=== PATIENT | female | born 1960 | race Caucasian/White ===

== ENCOUNTER 2016-09-09 21:39 | Emergency (ER) | payer OTHER ==
--- NOTE | ~2016-09-09 | CR63 ---
[facility] A Service of [facility] & [facility] RADIOLOGY TEXT RESULTS PATIENT: ALEKSANDR CHANDLER LOCATION: [facility] : [birth year] UNIT #: [id number] AGE: [address]: Jacinto Teixeira MD SEX: F ORDER DR: [id number] [facility] [address] [place], [place] [address] [id number] E MR#: [id number] Acc #: [id number] NAME: ALEKSANDR CHANDLER : 1960 SEX: F STUDY DATE/TIME: 09/09/2016 22:50 UNIT: [facility] ROOM: STUDY DESCRIPTION: CR Chest 2 View Attending Physician: Jacinto Teixeira M.D. Ordering Physician: Jacinto Teixeira M.D. Primary Care Physician: No Primary Care Physician MEDICAL IMAGING REPORT This report is preliminary unless electronic signature is present EXAM PA and lateral chest DATE 09/09/2016 HISTORY 55-year-old female shortness breath today. Smoking history. COMPARISON AP portable chest 04/04/2015 FINDINGS No acute airspace disease. Heart size within normal limits. No pleural effusion or pneumothorax is identified. IMPRESSION 1. No acute cardiopulmonary findings. Dictated by... April Gaffney M.D. THIS IS AN ELECTRONICALLY VERIFIED REPORT April Gaffney M.D. at 09/10/2016 6:02 AM BRENT/debora TD: 09/10/2016 02:02 JOB #: [id number] MEDICAL IMAGING REPORT Page 1 of 1 COPY
[~2016-09-09 21:39] MED LIST: ALBUTEROL/ATROVENT; ALBUTEROL17 GM INH; AMOXICILLIN PO; AUGMENTIN PO; BENZONATATE PO; CIPRO PO; DUONEB 2.5-0.5 M3 ML NEB; E-MYCIN250 MG PO; LIPITOR40 MG PO; LISINOPRIL PO; NEXIUM PO; NORCO 5/325 TAB1 TAB PO; PHENERGAN PO; PREDNISONE PO; PRINIVIL20 M1 PO; PROPRANOLOL HCL10 M1 PO; ROBITUSSIN A-C S5 ML PO; SERTRALINE HCL50 M1 PO; SYMBICORT80 INH; VICODIN PO; ZITHROMAX PO; ZITHROMAX1 G/PKT PO
== END 2016-09-10 00:20 | disposition home or self-care (01) ==
LOC: CED 21:39
DX: J44.1 Chronic obstructive pulmonary disease with (acute) exacerbation (principal); J20.9 Acute bronchitis, unspecified; J44.0 Chronic obstructive pulmonary disease with (acute) lower respiratory infection; F17.200 Nicotine dependence, unspecified, uncomplicated; Z79.899 Other long term (current) drug therapy
CPT/HCPCS: 71020; 94640; 99284

== ENCOUNTER 2016-09-29 19:52 | Emergency (ER) | payer OTHER ==
--- NOTE | ~2016-09-29 | CR20 ---
[facility] A Service of [place] & [facility] RADIOLOGY TEXT RESULTS PATIENT: ALEKSANDR CHANDLER LOCATION: [facility] : 64 UNIT #: [id number] AGE: [address]: RK LATHAM APRN SEX: F ORDER DR: [id number] [facility] [address] [place], [place] [address] [id number] E MR#: [id number] Acc #: [id number] NAME: ALEKSANDR CHANDLER : 1960 SEX: F STUDY DATE/TIME: 09/29/2016 20:28 UNIT: [facility] ROOM: STUDY DESCRIPTION: CR Ankle Min 3 Views Lt Attending Physician: Rk Latham Aprn Ordering Physician: Rk Latham Aprn Primary Care Physician: No Primary Care Physician MEDICAL IMAGING REPORT This report is preliminary unless electronic signature is present EXAM Left ankle series. DATE OF EXAM 09/29/2016 HISTORY Trauma. Twisted ankle in yard, anterior and lateral ankle/foot pain and swelling. FINDINGS AP, lateral and oblique radiographs of the left ankle are presented. No traumatic fracture or malalignment. Small plantar calcaneal spur. Soft tissue swelling anterior and medial aspect to the ankle, but no soft tissue defect, subcutaneous air or radiodense foreign body is seen. Dictated by... Javier Vann M.D. THIS IS AN ELECTRONICALLY VERIFIED REPORT Javier Vann M.D. at 09/30/2016 7:52 PM LUCILLE/priyank TD: 09/29/2016 22:08 JOB #: [id number] MEDICAL IMAGING REPORT Page 1 of 1 COPY
--- NOTE | ~2016-09-29 | CR126 ---
[facility] A Service of [facility] RADIOLOGY TEXT RESULTS PATIENT: ALEKSANDR CHANDLER LOCATION: [facility] : 64 UNIT #: [id number] AGE: [address]: RK LATHAM APRN SEX: F ORDER DR: [id number] [facility] [address] [place], [place] [address] [id number] E MR#: [id number] Acc #: [id number] NAME: ALEKSANDR CHANDLER : 1960 SEX: F STUDY DATE/TIME: 09/29/2016 20:30 UNIT: [facility] ROOM: STUDY DESCRIPTION: CR Foot Complete Min 3 View Lt Attending Physician: Rk Latham Aprn Ordering Physician: Rk Latham Aprn Primary Care Physician: No Primary Care Physician MEDICAL IMAGING REPORT This report is preliminary unless electronic signature is present EXAM Left foot 3 views HISTORY Foot and ankle pain, twisted ankle in yard today. FINDINGS 3 views of the left foot demonstrates diffuse soft tissue swelling about the foot and ankle. This may in part be related to body habitus. No definite fracture or dislocation. Normal alignment. Subtalar joint and midfoot alignment appears maintained. IMPRESSION Diffuse soft tissue swelling about the foot and ankle No discrete osseous abnormality identified. Please note if clinical symptoms persist, followup imaging may be warranted. Dictated by... Joseph Jovel M.D. THIS IS AN ELECTRONICALLY VERIFIED REPORT Joseph Jovel M.D. at 09/29/2016 10:34 PM YECENIA/noel TD: 09/29/2016 21:59 JOB #: [id number] MEDICAL IMAGING REPORT Page 1 of 1 COPY
== END 2016-09-29 22:37 | disposition home or self-care (01) ==
LOC: CFTX 19:52 → CED 19:52 → CFTX 20:23
DX: S93.402A Sprain of unspecified ligament of left ankle, initial encounter (principal); S93.602A Unspecified sprain of left foot, initial encounter; E11.9 Type 2 diabetes mellitus without complications; E78.00 Pure hypercholesterolemia, unspecified; J44.9 Chronic obstructive pulmonary disease, unspecified; G47.30 Sleep apnea, unspecified; I10 Essential (primary) hypertension; F17.210 Nicotine dependence, cigarettes, uncomplicated; Z79.899 Other long term (current) drug therapy; W19.XXXA Unspecified fall, initial encounter; Y92.007 Garden or yard of unspecified non-institutional (private) residence as the place of occurrence of the external cause
CPT/HCPCS: 29405; 73610; 73630; 99283